=== PATIENT | female | born 1995 | race Caucasian/White ===

== ENCOUNTER 2024-02-07 15:21 | Emergency (ER) | payer BC ==
[2024-02-07] MEDS: Lidocaine 1% with EPINEPHrine 1:100,000 20 ML MDV INJECT ONE (19:03)
== END 2024-02-07 19:04 | disposition home or self-care (01) ==
LOC: JP.ED 15:21
DX: S01.81XA Laceration without foreign body of other part of head, initial encounter (principal); Z88.2 Allergy status to sulfonamides; Z79.899 Other long term (current) drug therapy; W17.4XXA Fall from dock, initial encounter
CPT/HCPCS: 12013; 70486; 72125; 76377; 99283